=== PATIENT | male | born 1950 | race Hispanic/Latino ===

== ENCOUNTER 2016-05-15 09:50 | Day surgery (SDC) | payer MEDICARE, OTHER ==
[2016-05-15] VITALS (10 sets, daily range): BP systolic 105–140; BP diastolic 60–75; PULSE 48–60; RESP 13–18; O2SAT 96–99
[~2016-05-15] VITALS: Ht 165.1 cm; Wt 72.7 kg
[~2016-05-15 09:50] MED LIST: Lactated Ringer's 1,000 ML IV SCH; MULT-1018 PO; TADALAFIL
[2016-05-15] MEDS ORDERED: Ondansetron 2 mg/mL 2 mL Inj ONE (09:51)
[2016-05-15] MEDS ORDERED: Propofol 10,000 mCg/mL 20 mL Inj ONE (09:51)
[2016-05-15] MEDS ORDERED: fentaNYL-PF 50 mCg/mL 2 mL Inj ONE (09:51)
[2016-05-15] MEDS ORDERED: Dexamethasone 4 mg/mL Inj ONE (09:51)
[2016-05-15] MEDS ORDERED: Lactated Ringer's 1,000 ML IV ONE (10:32)
--- NOTE | 2016-05-15 11:48 | PCM.HPANE ---
Patient Data Surgeon Admitting Provider: Attending Provider:Alpesh Maki DO Primary Care Physician:Star Montes De Oca MD Other Provider:Doc Schroeder Anesthesia Reason for Visit Left Torn Medial Meniscus Ht/WT & BMI Height (Feet): 5 Height (Inches): 5.00 Weight (Kilograms): 72.700 Body Mass Index 26.00 Allergies Coded Allergies: No Known Allergies (Unverified , 05/11/16) Past Anesthesia History Anesthesia History: Denies:: Abnormal Airway, Anesthesia Reactions (no prior surgery), Difficult Intubation, Fam Anesthesia Reaction Diabetes History Hx Diabetes?: No MRSA MRSA: No Medications Hypertension Medication: No Home Meds Incl Beta Nila: No Reported Medications [tadafil] No Conflict Check20 Mg PRN erectile dysfunction 05/11/16 Multivitamin (Multi Vitamin Daily)1 Each Tablet1 Each PO DAILY 30 Days Ref 0 05/11/16 History History of ENT Problems?: Yes HEENT History: Positive for:: Dysphagia (difficulty swallowing pills) Denies:: Abnormal Airway Cataracts Difficult Intubation Glaucoma Hearing Problem Sinus Problem TMJ Hx of Heart Problems?: No Cardiovascular History: Positive for:: Heart Murmur (as child ) Denies:: AICD Abdominal Aortic Aneurism Atrial Fibrillation Chest Pain Congestive Heart Failure Coronary Artery Disease Hypertension Pacemaker Peripheral Vascular Rheumatic Fever Hx of Respiratory Problem?: No Respiratory History: Denies:: Asthma COPD Emphysema Oxygen Administration Pneumonia Tuberculosis Use of C-PAP Machine (sleep study done, minor apnea- no CPAP recommended) Use of Inhalers / NEBS Hx Neurologic Problems?: No Neurological History: Denies:: CVA Multiple Sclerosis Parkinson's Disease Seizures Hx of GI Problems?: Yes Gastrointestinal History: Positive for:: Gastroesphageal Reflux Heartburn (intermittent, TUMS OTC) Denies:: Cirrhosis Gall Bladder Disease Hepatitis Hiatal Hernia Liver Disease Rectal Bleeding Other GI Pertinent History: Needs lots of fiber to have bowel movements, hx of hemorrhoids Hx of Problems?: No Genitourinary History: Denies:: Kidney Stones Urinary Tract Infection Male Hx: Denies:: Prostate Problems Scrotal Mass Testicular Surgery Skin History: Denies:: History Skin Disorders? Pressure Ulcers Hx Musculoskeletal Problems?: Yes Musculoskeletal History: Positive for:: Musculoskeletal Trauma (left knee current admission problem) Osteoarthritis Denies:: Back Injury Degenerative Joint Fibromyalgia Joint Replacement Hx of Psycho/Social Problems?: No Psycho Social History: Denies:: Anxiety Hx Depression Hx Surgeries?: No Hx Any Other Health Problems?: Yes Other History: Denies:: Cancer Thyroid Disease History Blood Transfusions: Positive for:: Accept Blood Products? Denies:: Blood Transfusions Hx Diabetes: No Hx Alcohol Use: NoHx Substance Use: NoHave You Smoked inLast 12 mo: No Stop/Bang S-Snoring: Do You Snore Loudly: Yes T-Tired: feel tired, fatigued: No O-Obsered: Observed not breath: No P-Blood Pressure: treated: No B- Body Mass Index > 35 kg/m2: No A- Age over 50: Yes N- Neck Large Circumference: No G- Gender Male: Yes LUDWIG Total Score: 3 Risk Assessment Category Category 1A: Patient has history of documented sleep apnea, and HAS NOT received any narcotic, sedative or anesthesia administration during this stay. Category 1B: Patient has history of documented sleep apnea, and HAS received any narcotic , sedative or anesthesia administration during this stay Category 2: Patient has SUSPECTED Obstructive Sleep Apnea, and HAS received any narcotic , sedative or anesthesia administration during this stay. Category 3: Patient has SUSPECTED Obstructive Sleep Apnea and HAS NOT received narcotic, sedative or anesthesia administration during this stay. Category 4: Outpatient in Procedural Areas with known sleep apnea or who screen positive for High Risk via the STOP/BANG questionnaire. Exam Exam Vital Signs Vital Signs Date Time Temp Pulse Resp B/P Pulse Ox O2 Delivery O2 Flow Rate FiO2 05/15/16 10:24 36.6 48 16 140/72 99 Room Air General Appearance: Alert, Oriented X3, Cooperative HEENT/AIRWAY: MP 2 Lungs: Normal Air Movement Heart: Exam Unremarkable Meds/Labs/Diagnostics Admission Meds Current Medications Lactated Ringer's (Lr) 1,000 ml @ ud STK-MED ONCE IV Last administered on t 10:32; Start 05/15/16 at 10:32; Stop 05/15/16 at 10:33; Status DC Plan Impression Patient chart reviewed, patient interviewed and anesthestic plan with risks, benefits, and alternatives discussed, and informed consent obtained. NPO Status: confirmed before mn ASA Physical Status: ASA2 Mod Systemic Disease Anesthetic Plan: GA Bene/Risks/Altern/Consents: Yes HP Complete Prior to Induction: Yes Todd Brooks MD May 15, 2016 11:48
[2016-05-15] MEDS ORDERED: Ropivacaine-PF 0.5% 30 mL Inj INFILTRATE ONE (12:07)
[2016-05-15] MEDS ORDERED: Lidocaine 2%-Epi 1:100,000 20 mL Inj INFILTRATE ONE (12:28)
[2016-05-15] MEDS ORDERED: Lactated Ringer's 1,000 ML IV SCH (12:39)
[2016-05-15] MEDS ORDERED: Lactated Ringer's 500 ML IV PRN (12:39)
[2016-05-15] MEDS ORDERED: HYDROmorphone 1 mg/mL Inj IVPUSH PRN (12:40)
[2016-05-15] MEDS ORDERED: Dexamethasone 4 mg/mL Inj IVPUSH PRN (12:40)
[2016-05-15] MEDS ORDERED: Ondansetron 2 mg/mL 2 mL Inj IVPUSH PRN (12:40)
[2016-05-15] MEDS ORDERED: EPHEDrine Sulfate 50 mg/mL Inj IVPUSH PRN (12:40)
[2016-05-15] MEDS ORDERED: fentaNYL-PF 50 mCg/mL 2 mL Inj IVPUSH PRN (12:40)
[2016-05-15] MEDS ORDERED: Phenylephrine 10,000 mCg/mL Inj IVPUSH PRN (12:40)
[2016-05-15] MEDS ORDERED: MetoCLOpramide 5 mg/mL 2 mL Inj IVPUSH PRN (12:40)
--- NOTE | 2016-05-15 13:04 | PCM.ANEP1 ---
Post Anesthesia Phase 1 PACU Phase 1 Assessment Vital Signs Vital Signs Date Time Temp Pulse Resp B/P Pulse Ox O2 Delivery O2 Flow Rate FiO2 05/15/16 10:24 36.6 48 16 140/72 99 Room Air Anesthetic Administered: GA Level of Alertness: Awake, talking WALDEN's with Equal Strength: Yes Pain: No Nausea or Vomiting: No Lungs: Normal Air Movement Dermatome Level: Full Sensation Todd Brooks MD May 15, 2016 13:03
--- NOTE | 2016-05-15 13:04 | PCM.ANEP2 ---
Post Anesthesia Evaluation ASA/CMS Post Anesthesia VS in Patient's Normal Range?: Yes Resp Stable; Airway Patent?: Yes CV Function & Hydration Stable: Yes Mental Status Recovered?: Yes Pain control Satisfactory?: Yes N/V Control Satisfactory?: Yes Todd Broosk MD May 15, 2016 13:04
[2016-05-15] MEDS ORDERED: HYDROcodone-APAP 5-325 mg Tablet PO PRN (13:15)
[2016-05-15] MEDS ORDERED: hydrOXYzine Pamoate 25 mg Capsule PO PRN (13:15)
--- NOTE | 2016-05-15 13:43 | OP ---
[address] [address] OPERATIVE REPORT PATIENT: SUNNY SALCEDO : 1950 MR#: [id number] ADMIT: 05/15/2016 JOB ID: [id number] DATE OF SURGERY: 05/15/2016 PREOPERATIVE DIAGNOSIS(ES): Left knee torn medial meniscus. POSTOPERATIVE DIAGNOSIS(ES): Left knee torn medial meniscus. PROCEDURE: Left knee video arthroscopy with partial medial meniscectomy. SURGEON: Alpesh Maki DO ANESTHESIA: General. INDICATIONS: The patient is a 65-year-old male with left knee injury after he injured his knee playing with his grandchildren. He had an MRI confirming a torn medial meniscus. We discussed treatment options for this and he wished to proceed with a left knee arthroscopy. We discussed the risks, benefits, and possible complications of surgery. All questions were answered and he wished to proceed. PROCEDURE IN DETAIL: The patient was brought to the operating room. He was given LMA general anesthetic. Left lower extremity was sterilely prepped and draped. An incision was made over the anterolateral knee at the level of the joint line. The blunt trocar was introduced into the knee and inspection was undertaken. He was found to have a large bucket-handle type tear of the medial meniscus. A medial portal was established under needle localization and the meniscus was resected back to a stable base with a combination of biters and shaver. The cut portion was removed with a grasper. His articular cartilage was in good condition. His anterior cruciate ligament was intact. His lateral compartment was pristine. He had a small medial plica which was also resected. The scope was then removed and the portals were closed with interrupted nylon suture. Naropin was added as an adjunct local anesthetic. Sterile dressings were applied. Patient tolerated the procedure well. Blood loss was minimal. POSTOPERATIVE PROTOCOL: Have the patient weightbear to tolerance. Use crutches as needed. Ice and elevate. Follow up in two weeks for recheck. He was given a prescription for [place] for pain as needed.
== END 2016-05-15 23:59 | disposition home or self-care (01) ==
LOC: SAS 09:50
PROVIDERS: ATTEND Orthopaedic Surgery
DX: S83.232A Complex tear of medial meniscus, current injury, left knee, initial encounter (principal); R13.10 Dysphagia, unspecified; K21.9 Gastro-esophageal reflux disease without esophagitis; R12 Heartburn; M19.90 Unspecified osteoarthritis, unspecified site; X58.XXXA Exposure to other specified factors, initial encounter; Y92.9 Unspecified place or not applicable